=== PATIENT | male | born 1955 | race Caucasian/White ===

== ENCOUNTER 2019-07-27 10:29 | Emergency (ER) | payer BC ==
[~2019-07-27] VITALS: Ht 172.7 cm; Wt 72.6 kg
[~2019-07-27 10:29] MED LIST: AZOPT5 ML
== END 2019-07-27 14:17 | disposition home or self-care (01) ==
LOC: ER 10:29
DX: R10.13 Epigastric pain (principal); K29.60 Other gastritis without bleeding